=== PATIENT | male | born 1990 | race Caucasian/White ===

== ENCOUNTER 2019-02-02 17:53 | Inpatient (IN) | payer SELFPAY ==
[~2019-02-02] VITALS: Ht 177.8 cm; Wt 127.0 kg
[2019-02-02 18:54] LABS: BASOPHILS % (AUTO) 1.1 % (0.0-2.0); EOSINOPHILS % (AUTO) 1.6 % (1.0-6.0); HEMATOCRIT 47.5 % (41-53); HEMOGLOBIN 16.3 g/dL (13.5-17.5); LYMPHOCYTES # (AUTO) 3.4 K/uL (1.0-4.8); LYMPHOCYTES % (AUTO) 32.5 % (22.0-44.0); MEAN CORPUSCULAR HEMOGLOBIN 29.2 pg (26.0-34.0); MEAN CORPUSCULAR HGB CONC 34.2 G/dL (31.0-37.0); MEAN CORPUSCULAR VOLUME 85 fL (80-100); MONOCYTES # (AUTO) 0.7 K/uL (0.1-1.0); MONOCYTES % (AUTO) 6.3 % (2.0-9.0); NEUTROPHILS # (AUTO) 6.1 K/uL (1.8-7.7); NEUTROPHILS % (AUTO) 58.5 % (40.0-70.0); PLATELET COUNT (AUTO) 296 K/uL (150-450); RED BLOOD CELL COUNT(AUTO) 5.58 MIL/uL (4.50-5.90); RED CELL DISTRIBUTION WIDTH 13.1 % (11.5-14.5)
[2019-02-02 19:03] LABS: ANION GAP 10 mmol/L (8-16); CALCIUM, TOTAL 9.1 mg/dL (8.8-10.5); CARBON DIOXIDE 25 mmol/L (22-29); CHLORIDE 104 mmol/L (98-107); CREATININE 1.03 mg/dL (0.60-1.30); GLOMERULAR FILTR. RATE CALC > 60 mL/min (>60); GLUCOSE,RANDOM 116 mg/dL (70-110); POTASSIUM 3.9 mmol/L (3.5-5.1); SODIUM SERUM 139 mmol/L (136-145); UREA NITROGEN, BLOOD 11 mg/dL (7-18)
[2019-02-02 19:09] LABS: ALANINE AMINOTRANSFERASE 89 U/L (12-78); ALKALINE PHOSPHATASE 107 U/L (46-116); ASPARTATE AMINOTRANSFERASE 33 U/L (15-37); BILIRUBIN,TOTAL 0.3 mg/dL (0.1-1.0); TOTAL PROTEIN, SERUM 7.7 g/dL (6.4-8.2)
[2019-02-02 20:16] LABS: AMPHET/METH SCREEN,URINE NEGATIVE (NEGATIVE); BARBITURATE SCREEN, URINE NEGATIVE (NEGATIVE); BENZODIAZEPINES SCREEN,URINE NEGATIVE (NEGATIVE); CANNABINOID SCREEN,URINE NEGATIVE (NEGATIVE); COCAINE SCREEN,URINE NEGATIVE (NEGATIVE); METHADONE SCREEN, URINE NEGATIVE (NEGATIVE); OPIATE SCREEN,URINE NEGATIVE (NEGATIVE); PHENCYCLIDINE SCREEN,URINE NEGATIVE (NEGATIVE)
[2019-02-02] MEDS ORDERED: HALOPERIDOL 5 MG TABLET PO PRN (21:15)
[2019-02-03] MEDS: ZOLPIDEM TARTRATE 10 MG TABLET PO PRN (03:11)
[2019-02-03 05:36] LABS: CHOL/HDL RATIO 6.1 (4.2-7.3)
[2019-02-03] MEDS ORDERED: LORazepam 2 MG/ML VIAL IM ONE (08:45)
[2019-02-03] MEDS ORDERED: DiphenhydrAMINE HCL 50 MG/ML VIAL IM ONE (08:45)
[2019-02-03] MEDS ORDERED: HALOPERIDOL LACTATE 5 MG/ML VIAL IM ONE (08:45)
[2019-02-03] MEDS ORDERED: PNEUMOCOCCAL VACCINE POLYVALENT 0.5 ML VIAL [PPSV23] IM ONE (16:45)
[2019-02-03 16:55] VITALS: BP 135/81
[2019-02-03] MEDS ORDERED: BENZOCAINE/MENTHOL LOZENGE MM PRN (18:15)
[2019-02-03] MEDS ORDERED: MAG HYDROX/AL HYDROX/SIMETH ES 30 ML SUSPENSION UDCUP PO PRN (18:15)
[2019-02-03] MEDS ORDERED: PETROLATUM,WHITE 28 GM JELLY TP PRN (18:15)
[2019-02-03] MEDS ORDERED: ONDANSETRON HCL 4 MG TABLET PO PRN (18:15)
[2019-02-03] MEDS ORDERED: ACETAMINOPHEN 325 MG TABLET PO PRN (18:15)
[2019-02-03] MEDS ORDERED: IBUPROFEN 600 MG TABLET PO PRN (18:15)
[2019-02-03] MEDS ORDERED: LOPERAMIDE HCL 2 MG CAPSULE PO PRN (18:15)
[2019-02-03] MEDS ORDERED: BACITRACIN 28.4 GM OINTMENT TP PRN (18:15)
[2019-02-03] MEDS ORDERED: ALBUTEROL SULFATE HFA 90 MCG/PUFF 8 GM INHALER IH PRN (18:15)
[2019-02-03] MEDS ORDERED: MAGNESIUM HYDROXIDE SUSPENSION 30 ML UDCUP PO PRN (18:15)
[2019-02-03] MEDS ORDERED: CloNIDine HCL 0.1 MG TABLET PO PRN (18:15)
[2019-02-04] MEDS: ZOLPIDEM TARTRATE 10 MG TABLET PO PRN ×2 (00:33→20:39)
[2019-02-04 00:47] VITALS: BP 129/71
[2019-02-04 08:04] VITALS: BP 125/66
[2019-02-04] MEDS: OMEPRAZOLE 20 MG CAPSULE PO SCH (08:30)
[2019-02-04] MEDS: DOCUSATE SODIUM 100 MG CAPSULE PO SCH (08:30)
[2019-02-04] MEDS: RisperiDONE 1 MG TABLET PO SCH (17:00)
[2019-02-04] MEDS: LORazepam 2 MG TABLET PO PRN (18:00)
[2019-02-05 04:20] VITALS: BP 128/77
[2019-02-05] MEDS: LORazepam 2 MG TABLET PO PRN ×2 (04:22→16:55)
[2019-02-05 08:04] VITALS: BP 127/71
[2019-02-05] MEDS: RisperiDONE 1 MG TABLET PO SCH ×2 (08:15→16:55)
[2019-02-05] MEDS: OMEPRAZOLE 20 MG CAPSULE PO SCH (08:15)
[2019-02-05] MEDS: DOCUSATE SODIUM 100 MG CAPSULE PO SCH (08:15)
[2019-02-05 16:04] VITALS: BP 132/77
[2019-02-05] MEDS: ZOLPIDEM TARTRATE 10 MG TABLET PO PRN (20:50)
[2019-02-06 00:10] VITALS: BP 130/78
[2019-02-06] MEDS: LORazepam 2 MG TABLET PO PRN ×2 (00:11→16:25)
[2019-02-06 08:14] VITALS: BP 121/60
[2019-02-06] MEDS: OMEPRAZOLE 20 MG CAPSULE PO SCH (08:20)
[2019-02-06] MEDS: RisperiDONE 1 MG TABLET PO SCH ×2 (08:20→16:25)
[2019-02-06] MEDS: DOCUSATE SODIUM 100 MG CAPSULE PO SCH (08:21)
[2019-02-06 16:00] VITALS: BP 116/81
[2019-02-06] MEDS: ZOLPIDEM TARTRATE 10 MG TABLET PO PRN (21:22)
[2019-02-07 05:19] VITALS: BP 130/80
[2019-02-07 08:08] VITALS: BP 128/86
[2019-02-07] MEDS ORDERED: OMEGA-3/DHA/EPA/FISH OIL 1,000 MG CAPSULE PO SCH (09:00)
[2019-02-07] MEDS: RisperiDONE 1 MG TABLET PO SCH (09:16)
[2019-02-07] MEDS: DOCUSATE SODIUM 100 MG CAPSULE PO SCH (09:16)
[2019-02-07] MEDS: OMEPRAZOLE 20 MG CAPSULE PO SCH (09:16)
[2019-02-07] MEDS ORDERED: RISP1 PO (12:31)
== END 2019-02-07 13:15 | disposition home or self-care (01) | DRG 885 ==
LOC: EMS 17:54 → B3A 02-03 13:45
PROVIDERS: ADMIT Psychiatry & Neurology Psychiatry; ATTEND Psychiatry & Neurology Psychiatry
DX: F20.0 Paranoid schizophrenia (principal); R45.851 Suicidal ideations; E78.1 Pure hyperglyceridemia; F12.90 Cannabis use, unspecified, uncomplicated; F17.210 Nicotine dependence, cigarettes, uncomplicated; F32.9 Major depressive disorder, single episode, unspecified; J45.909 Unspecified asthma, uncomplicated; Z28.21 Immunization not carried out because of patient refusal
CPT/HCPCS: 90732; 96372; 99406; G0480; J1200; J1630; J2060

== ENCOUNTER 2023-06-05 00:36 | Inpatient (IN) | payer MEDICAID ==
[~2023-06-05] VITALS: Ht 177.8 cm; Wt 117.5 kg
[~2023-06-05 00:36] MED LIST: RISP1TAB48 PO
[2023-06-05] MEDS ORDERED: HALOPERIDOL LACTATE 5 MG/ML VIAL IM ONE (02:00)
[2023-06-05] MEDS ORDERED: DiphenhydrAMINE HCL 50 MG/ML VIAL IM ONE (02:00)
[2023-06-05] MEDS ORDERED: LORazepam 2 MG/ML VIAL IM ONE (02:00)
[2023-06-05 02:22] LABS: BASOPHILS % (AUTO) 0.8 % (0.0-2.0); EOSINOPHILS % (AUTO) 0.1 % (1.0-6.0); HEMATOCRIT 48.4 % (41-53); HEMOGLOBIN 16.3 g/dL (13.5-17.5); LYMPHOCYTES # (AUTO) 3.1 K/uL (1.0-4.8); LYMPHOCYTES % (AUTO) 21.1 % (22.0-44.0); MEAN CORPUSCULAR HEMOGLOBIN 30.2 pg (26.0-34.0); MEAN CORPUSCULAR HGB CONC 33.7 G/dL (31.0-37.0); MEAN CORPUSCULAR VOLUME 90 fL (80-100); MONOCYTES # (AUTO) 1.1 K/uL (0.1-1.0); MONOCYTES % (AUTO) 7.5 % (2.0-9.0); NEUTROPHILS # (AUTO) 10.4 K/uL (1.8-7.7); NEUTROPHILS % (AUTO) 70.5 % (40.0-70.0); PLATELET COUNT (AUTO) 244 K/uL (150-450); RED CELL DISTRIBUTION WIDTH 12.9 % (11.5-14.5)
[2023-06-05] MEDS ORDERED: PERTUSS(ACELL),DIPH,TET VAC/PF 0.5 ML SYRINGE IM. ONE (02:30)
[2023-06-05] MEDS ORDERED: LIDOCAINE 1% 10 ML VIAL SQ ONE (02:30)
[2023-06-05] MEDS ORDERED: BACITRACIN 0.9 GM PACKET OINTMENT TP ONE (02:30)
[2023-06-05 02:44] LABS: ANION GAP 15 mmol/L (8-16); CARBON DIOXIDE 21 mmol/L (22-29); CHLORIDE 100 mmol/L (98-107); CREATININE 1.25 mg/dL (0.60-1.30); GLOMERULAR FILTR. RATE CALC > 60 mL/min (>60); GLUCOSE,RANDOM 175 mg/dL (70-110); POTASSIUM 3.7 mmol/L (3.5-5.1); SODIUM SERUM 136 mmol/L (136-145)
[2023-06-05] MEDS ORDERED: ZOLPIDEM TARTRATE 10 MG TABLET PO PRN (02:45)
[2023-06-05] MEDS ORDERED: LORazepam 2 MG TABLET PO PRN (02:45)
[2023-06-05] MEDS ORDERED: HALOPERIDOL 5 MG TABLET PO PRN (02:45)
[2023-06-05 02:50] LABS: ALANINE AMINOTRANSFERASE 51 U/L (12-78); ALBUMIN 4.3 g/dL (3.4-5.0); ALKALINE PHOSPHATASE 130 U/L (46-116); ASPARTATE AMINOTRANSFERASE 15 U/L (15-37); BILIRUBIN,TOTAL 0.4 mg/dL (0.1-1.0)
[2023-06-05 03:13] LABS: COVID AG,FIA SOURCE NASOPHARYNGEAL
[2023-06-05 14:00] VITALS: BP 117/78; PULSE 82; RESP 18; TEMP 98; O2SAT 96
[2023-06-05 20:29] VITALS: BP 118/67; PULSE 71; RESP 18; TEMP 98.1; O2SAT 99
[2023-06-06 08:26] VITALS: BP 121/76; PULSE 84; RESP 18; TEMP 98; O2SAT 95
[2023-06-06] MEDS ORDERED: ONDANSETRON HCL 4 MG TABLET PO PRN (17:15)
[2023-06-06] MEDS ORDERED: ACETAMINOPHEN 325 MG TABLET PO PRN (17:15)
[2023-06-06] MEDS ORDERED: DOCUSATE SODIUM 100 MG CAPSULE PO PRN (17:15)
[2023-06-06] MEDS ORDERED: IBUPROFEN 400 MG TABLET PO PRN (17:15)
[2023-06-06] MEDS ORDERED: NICOTINE 14 MG/24 HOUR PATCH TD PRN (17:15)
[2023-06-06] MEDS ORDERED: GuaiFENesin/D-METHORPHAN [SUGAR-FREE] 200-20MG/10 ML SYRUP UDCUP PO PRN (17:15)
[2023-06-06] MEDS ORDERED: LOPERAMIDE HCL 2 MG CAPSULE PO PRN (17:15)
[2023-06-06] MEDS ORDERED: PETROLATUM,WHITE 28 GM JELLY TP PRN (17:15)
[2023-06-06] MEDS ORDERED: CloNIDine HCL 0.1 MG TABLET PO PRN (17:15)
[2023-06-06] MEDS ORDERED: MAG HYDROX/AL HYDROX/SIMETH ES 30 ML SUSPENSION UDCUP PO PRN (17:15)
[2023-06-06] MEDS ORDERED: MAGNESIUM HYDROXIDE SUSPENSION 30 ML UDCUP PO PRN (17:15)
[2023-06-06] MEDS ORDERED: ALBUTEROL SULFATE HFA 90 MCG/PUFF 8 GM INHALER IH PRN (17:15)
[2023-06-06 20:12] VITALS: BP 113/64; PULSE 66; RESP 18; TEMP 98; O2SAT 99
[2023-06-06] MEDS: QUEtiapine FUMARATE 200 MG TABLET PO SCH (20:29)
[2023-06-07 15:27] VITALS: BP 130/80; PULSE 76; RESP 18; TEMP 98.2; O2SAT 98
[2023-06-07] MEDS: QUEtiapine FUMARATE 200 MG TABLET PO SCH (20:20)
[2023-06-07 20:40] VITALS: BP 118/78; PULSE 82; RESP 20; TEMP 98; O2SAT 97
[2023-06-08 08:16] LABS: HEMOGLOBIN A1C 6.3 % (3.8-5.6)
[2023-06-08 08:19] VITALS: BP 127/78; PULSE 80; RESP 18; TEMP 97.3; O2SAT 100
[2023-06-08 08:40] LABS: CHOL/HDL RATIO 5.5 (4.2-7.3); THYROID STIMULATING HORMONE 1.36 uIU/mL (0.36-3.74)
[2023-06-08] MEDS ORDERED: QUET200T30 PO (11:12)
[2023-06-09 05:08] LABS: HEPATITIS C AB (EIA) Non Reactive (Non Reactive)
== END 2023-06-08 16:43 | disposition home or self-care (01) | DRG 750 ==
LOC: EMS 00:38 → B3A 11:13
PROVIDERS: ADMIT Psychiatry & Neurology Psychiatry; ATTEND Psychiatry & Neurology Psychiatry
DX: F25.1 Schizoaffective disorder, depressive type (principal); R45.851 Suicidal ideations; D72.829 Elevated white blood cell count, unspecified; F10.10 Alcohol abuse, uncomplicated; S61.218A Laceration without foreign body of other finger without damage to nail, initial encounter; Z20.822 Contact with and (suspected) exposure to COVID-19; J45.909 Unspecified asthma, uncomplicated; F41.9 Anxiety disorder, unspecified; R73.9 Hyperglycemia, unspecified; F17.210 Nicotine dependence, cigarettes, uncomplicated; X58.XXXA Exposure to other specified factors, initial encounter; Y93.89 Activity, other specified; Y92.89 Other specified places as the place of occurrence of the external cause; Y99.8 Other external cause status
CPT/HCPCS: 80053; 80061; 83036; 84443; 85025; 86803; 87340; 90715; 99285; G0480; J1200; J1630; J2060; J3490